=== PATIENT | female | born 1960 ===

== ENCOUNTER 2018-03-26 05:49 | Day surgery (SDC) | payer OTHER ==
[2018-03-25 10:48] VITALS: BMI 43.6
[2018-03-26 06:36] VITALS: TEMP 97.8
--- NOTE | 2018-03-26 07:44 | CP.SDSHP ---
Same Day Surgery H & P - History Proposed Procedure: Egd Pre-Op Diagnosis: epigastric pain. heartburn refractory to treatment - Previous Medical/Surgical History Cardiac: Hypertension, Other (hyperlipidemia, ) Endocrine/Metabolic: Obesity Misc: Anemia, Other (Peptic ulcer disease, Gerd, colon polyps) Previous Surgical History: REN/BSO. T and A. Lipoma from neck - Allergies Allergies: Allergies shellfish derived Allergy (Intermediate, Verified 03/25/18 10:48) RASH dust Allergy (Intermediate, Uncoded 06/24/13 11:58) ITCHING SEAFOOD Allergy (Intermediate, Uncoded 03/05/16 11:21) RASH - Physical Exam Vital Signs: Vital Signs 03/26/18 06:31 Temperature 97.8 F Pulse Rate 80 Respiratory 20 Rate Blood Pressure 143/60 O2 Sat by Pulse 98 Oximetry Mental Status: Alert & Oriented x3 Neuro: WNL Heart: WNL Lungs: WNL GI: WNL - Impression Impression: epigastric pain. heartburn Pt. Evaluated Today:Candidate for Anesthesia & Procedure: Yes - Date & Time Date: 03/26/18 Time: 07:43 Short Stay Discharge - Short Stay Discharge Admitting Diagnosis/Reason for Visit: EPIGASTRIC PAIN, RIGHT UPPER QUADRANT PAIN, HEART Disposition: HOME/ ROUTINE
[2018-03-26] MEDS ORDERED: Midazolam 2 MG/2 ML VIAL ONE (07:47)
[2018-03-26] MEDS ORDERED: Propofol 10 mg/ml Inj (20 ML) ONE (07:47)
[2018-03-26] MEDS ORDERED: Lidocaine Hydrochloride 5 ML INJ ONE (07:48)
[2018-03-26] MEDS ORDERED: Lactated Ringer's 500 ML IV SCH (08:00)
[2018-03-26 08:21] VITALS: O2SAT 99
[2018-03-26 08:44] VITALS: RESP 16
[2018-03-26 09:51] VITALS: BP 121/74; PULSE 88
== END 2018-03-26 09:45 | disposition home or self-care (01) ==
LOC: C.ENDO 05:49
PROVIDERS: ATTEND Internal Medicine Gastroenterology
DX: R10.13 Epigastric pain (principal); R10.11 Right upper quadrant pain; R12 Heartburn; K21.0 Gastro-esophageal reflux disease with esophagitis; E66.01 Morbid (severe) obesity due to excess calories; K44.9 Diaphragmatic hernia without obstruction or gangrene; K29.70 Gastritis, unspecified, without bleeding; K20.9 Esophagitis, unspecified
CPT/HCPCS: 43239; 88305; J2250; J2704; J7120